=== PATIENT | female | born 1990 | race African-American/Black ===

== ENCOUNTER 2021-04-19 02:09 | Emergency (ER) | payer OTHER, SELFPAY ==
--- NOTE | ~2021-04-19 | XR_ITS ---
EXAMINATION: XR ankle RT min 3V INDICATION: Right ankle pain TECHNIQUE: Four views of the right ankle are obtained. COMPARISON: None available FINDINGS: There is lateral soft tissue swelling of ankle. No underlying fracture is identified. There is mild irregularity at the anterior/superior aspect of the navicular bone on the lateral view which has a somewhat chronic appearance. IMPRESSION: 1. Lateral soft tissue swelling of the ankle without fibular fracture identified. 2. Mild irregularity at the anterior/superior aspect of the navicular which has a chronic appearance however acute fracture is a consideration. Reviewed, dictated and finalized at location A. IMPRESSION: 1. Lateral soft tissue swelling of the ankle without fibular fracture identifie d. 2. Mild irregularity at the anterior/superior aspect of the navicular which has a chronic appearance however acute fracture is a consideration.
[2021-04-19 02:14] VITALS: BP 112/90; PULSE 100; RESP 20; TEMP 36.7; O2SAT 99
--- NOTE | 2021-04-19 02:46 | ED.GENADULT ---
HPI - General Adult General Chief complaint: Extremity Injury, Lower Stated complaint: R ankle pain Time Seen by Provider: 04/19/21 02:12 History of Present Illness HPI narrative: Patient 30-year-old female presents the emergency department with chief complaint of right ankle pain.. Patient reports that she was out with some friends this evening and stepped wrong and twisted her right ankle. The patient reports she has swelling on the lateral malleolus of the right ankle reports that hurts whenever she attempts to put weight on it. Patient states that it is improved with rest and worsened with movement. Patient denies laceration denies head injury or of the other trauma. Related Data Allergies Allergy/AdvReac Type Severity Reaction Status Date / Time No Known Allergies Allergy Unverified 08/06/15 23:00 Review of Systems Review of Systems: Narrative: A 10 system review of systems was completed on the patient and is negative except for what is stated in the HPI. Nursing and ancillary documentation was reviewed. Exam Narrative: Exam Narrative: GENERAL: Well-appearing, well-nourished, and in no acute distress. HEAD: Normocephalic, atraumatic. EYES: PERRLA and EOMI. ENT: Nares clear, no rhinorrhea or epistaxis. Mucous membranes moist. NECK: Supple. CHEST: Clear to auscultation. No respiratory distress. HEART: Regular rate and rhythm. No murmur heard. Normal peripheral pulses. ABDOMEN: Soft, nontender, nondistended, normal active bowel sounds. EXTREMITIES: Normal range of motion. No edema. There is tenderness and swelling of the right lateral malleolus of the ankle SKIN: Warm, dry, no rash. NEURO: No focal deficits. Alert and oriented x3. PSYCH: Normal mood and affect. Course Course Emergency Course: Plain film x-rays of the right ankle showed no evidence of fracture Vital Signs Vital signs: Vital Signs Temperature 36.7 C 04/19/21 02:14 Pulse Rate 100 04/19/21 02:14 Respiratory Rate 20 04/19/21 02:14 Blood Pressure 112/90 04/19/21 02:14 Pulse Oximetry 99 04/19/21 02:14 Temperature 36.7 C 04/19/21 02:14 Pulse Rate 100 04/19/21 02:14 Respiratory Rate 20 04/19/21 02:14 Blood Pressure 112/90 04/19/21 02:14 Pulse Oximetry 99 04/19/21 02:14 Medical Decision Making Vital Signs Vital Signs: Vital Signs Temperature 36.7 C 04/19/21 02:14 Pulse Rate 100 04/19/21 02:14 Respiratory Rate 20 04/19/21 02:14 Blood Pressure 112/90 04/19/21 02:14 Pulse Oximetry 99 04/19/21 02:14 Temperature 36.7 C 04/19/21 02:14 Pulse Rate 100 04/19/21 02:14 Respiratory Rate 20 04/19/21 02:14 Blood Pressure 112/90 04/19/21 02:14 Pulse Oximetry 99 04/19/21 02:14 Discharge Plan Discharge Clinical Impression: Ankle sprain and strain Patient Disposition: Home, Self-Care Condition: Stable Instructions: Antibiotic Form, Ankle Sprain (ED), Crutch Instructions (ED) Prescriptions: New ibuprofen 800 mg tablet 800 mg PO TID PRN (Reason: pain) Qty: 30 RF: 0 Follow-up/Referrals: PHYSICIAN,[employer] [Primary Care Provider] - Dilan Falk MD [Physician] - Stand Alone Forms: Work/School Release IP Time of Disposition: 02:47
--- NOTE | 2021-04-19 03:13 | PC.NURSE ---
joaquin wrap applied to RIGHT ankle by this RN. pedal pulse +2; cap refill < 2 sec and no discoloration/numbness/tingling noted after application. pt also provided with crutches and training/instruction by this RN.
[2021-04-19 03:15] VITALS: BP 147/93; PULSE 92; RESP 18; TEMP 36.7; O2SAT 99
== END 2021-04-19 03:16 | disposition home or self-care (01) ==
PROVIDERS: Emergency Provider Emergency Medicine
DX: S93.401A Sprain of unspecified ligament of right ankle, initial encounter (principal); S96.911A Strain of unspecified muscle and tendon at ankle and foot level, right foot, initial encounter; X50.9XXA Other and unspecified overexertion or strenuous movements or postures, initial encounter
CPT/HCPCS: 73610; 99283